=== PATIENT | female | born 1945 | race Caucasian/White ===

== ENCOUNTER → 2017-09-21 | Outpatient (CLI) | payer MEDICARE ==
--- NOTE | 2017-09-21 10:20 | CT ---
EXAMINATION TYPE: CT abdomen w con DATE OF EXAM: 09/21/2017 HISTORY: Cirrhosis CT DLP: 2325.1mGycm Automated Exposure Control for Dose Reduction was Utilized. CONTRAST: CT scan of the abdomen was performed with IV Contrast, patient injected with 100 mL of Isovue 300. COMPARISON: Chest CT dated 05/13/2010 FINDINGS: LUNG BASES: A 3 mm nodule is seen at the peripheral right lung base on series 7 image 1. This is toshia lar in size to the comparison of 05/13/2010 and is favored to be benign. Minimal bibasilar subsegmenta l atelectasis is noted. There is also slight pectus excavatum deformity impressing upon the right atr ium. LIVER/GB: There is a cirrhotic morphology of the liver and cholecystectomy. There is engorgement of t he portal vein in minimal central mesenteric haziness related to vascular congestion. There is recana lization of the umbilical vein. Few gastric hepatic varices are seen. No paraesophageal varices are i dentified or splenic varices. There is a focal hypoattenuated liver lesion within the left hepatic lo be on series 6 image 26 measuring 5 mm. This is not compatible with a simple cyst and could relate to a regenerative nodule or hepatoma. PANCREAS: No significant abnormality is seen. SPLEEN: There is splenic atrophy. ADRENALS: Very slight nodularity of the adrenal glands is seen bilaterally although the adrenal gland s maintain a normal adreniform shape, most commonly related to adrenal gland hyperplasia. KIDNEYS: Kidneys enhance symmetrically without evidence of hydronephrosis. BOWEL: There is diffuse greater curvature and lesser curvature gastric fundus and body thickening. Sm all duodenal diverticulum is incidentally seen. Visualized portions of small and large bowel are nond ilated. Few scattered colonic diverticula are present without pericolonic fat stranding. No evidence of congestive colopathy given this patient's history of cirrhosis. LYMPH NODES: No greater than 1cm abdominal or pelvic lymph nodes are appreciated. OSSEOUS STRUCTURES: Advanced degenerative changes of the visualized spine are noted. There is grade 1 anterolisthesis of L5 on S1. IMPRESSION: 1. Diffuse circumferential thickening of the gastric fundus and body. This could relate to gastritis, lymphoma, or other gastric neoplasm and endoscopy is recommended. 2. Cirrhotic morphology of the liver with evidence of portal venous hypertension demonstrated as few gastric hepatic ligament is varices, recanalization of the portal vein, and mild central mesenteric v enous congestion. Additionally there is a solitary left hepatic lobe subcentimeter hypoattenuated hep atic lesion that is incompletely characterized. Enhanced MR is recommended to evaluate for regenerati ve nodule or small hepatoma given this patient's high risk background. 3. Findings most compatible with adrenal gland hyperplasia.
--- NOTE | 2017-09-21 10:53 | CT ---
EXAMINATION TYPE: CT soft tissue neck w con DATE OF EXAM: 09/21/2017 HISTORY: Swelling mass and lump of neck COMPARISON: NONE CT DLP: 453.2 mGycm. Automated Exposure Control for Dose Reduction was Utilized. TECHNIQUE: CT scan of the neck is performed with IV Contrast, patient injected with 100 mL of Isovue 300, axial images are obtained, coronal and sagittal reformatted images are reviewed. FINDINGS: Airway: No gross abnormality seen. Parotid/submandibular glands: No gross abnormality seen. Carotid/Vascular Structures: Small amount of nonhemodynamically significant calcific plaquing is seen of the right vertebral artery on series 2 image 68. Vertebral arteries are codominant. There is a no rmal three-vessel branch pattern of the great vessels. 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 No hemodynamically significant stenosis of the common carotid arteries bilaterally. Mild amount of pl aquing is seen on the left at the carotid bulb with stenosis of less than 50%. On the right similarly there is a small noncalcific atheromatous plaquing of the carotid bulb without hemodynamically signi ficant stenosis of greater than 50%. Small amount of calcific atheromatous plaquing is also seen of t he cavernous and supraclinoid portions of the intracranial carotid vasculature. Osseous Structures: Multilevel mild degenerative change of the cervical spine is noted. Vertebral bod y heights and alignment are maintained. Other: There are coarse calcifications of the left thyroid gland and overall heterogeneity. Thyroid g land appears slightly atrophic. In the region of the palpable abnormality indicated by the left superficial skin BB on series 2 image 57 there is a superficial vessel, a normal-appearing sternocleidomastoid, in a nonenlarged lymph nod e measuring only 3 mm in short axis. The parotid gland periphery is also seen at this location withou t inflammatory change. Parotid glands are symmetric. Similarly on the right the palpable abnormality also corresponds to an unremarkable parotid gland, unremarkable sternocleidomastoid, and superficial vasculature. Very minimal centrilobular emphysema is seen of the lung apices. 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 Paranasal sinuses and mastoid air cells are well aerated. IMPRESSION: 1. No suspicious abnormality to correspond to the patient's palpable abnormalities bilaterally. Deep to the BB markers there are unremarkable appearing sternocleidomastoid musculature, parotid glands, n onenlarged lymph node on the left, and superficial vasculature. 2. Nonhemodynamically significant stenosis (less than 50%) of the carotid bulbs.
== END ==
LOC: RADCTMAIN 07:43
PROVIDERS: ATTEND Internal Medicine Gastroenterology
DX: K76.6 Portal hypertension (principal); K74.60 Unspecified cirrhosis of liver; K76.9 Liver disease, unspecified
CPT/HCPCS: 70491; 74160; Q9967

== ENCOUNTER → 2021-10-28 | Outpatient (CLI) | payer MEDICARE ==
--- NOTE | 2021-10-28 15:16 | XR ---
EXAMINATION TYPE: XR chest 2V DATE OF EXAM: 10/28/2021 COMPARISON: CT chest May 13, 2010. HISTORY: Shortness of breath. TECHNIQUE: Frontal and lateral views of the chest are obtained. FINDINGS: There is no suspicious new focal air space opacity, pleural effusion, or pneumothorax seen . The cardiac silhouette size is now mildly enlarged. Degenerative change bilateral glenohumeral marisol nts is present. IMPRESSION: Mild cardiomegaly without acute pulmonary process.
== END | disposition home or self-care (01) ==
LOC: RADXRYALE 13:59
PROVIDERS: ATTEND Internal Medicine Interventional Cardiology
DX: R06.02 Shortness of breath (principal); I51.7 Cardiomegaly
CPT/HCPCS: 71046

== ENCOUNTER → 2021-11-16 | Outpatient (CLI) | payer MEDICARE ==
--- NOTE | 2021-11-16 17:05 | US ---
EXAMINATION TYPE: US kidneys/renal and bladder DATE OF EXAM: 11/16/2021 COMPARISON: NONE CLINICAL HISTORY: N81.5 VAGINAL ENTEROCELE. Vaginal prolapse. Complete hysterectomy EXAM MEASUREMENTS: Right Kidney: 11.7 x 5.6 x 5.4 cm Left Kidney: 11.5 x 5.7 x 5.8 cm Right Kidney: dilated renal pelvis consistent with extrarenal pelvis. Left Kidney: no evidence of hydronephrosis Bladder: wnl Bilateral Jets seen: no There is no evidence for hydronephrosis at this point in time. No nephrolithiasis is seen. No coreen s are identified. The urinary bladder is anechoic. IMPRESSION: No evidence of obstructive uropathy.
== END | disposition home or self-care (01) ==
LOC: RADUSWWP 15:44
PROVIDERS: ATTEND Urology
DX: N81.5 Vaginal enterocele (principal)
CPT/HCPCS: 76770